=== PATIENT | female | born 2000 | race Caucasian/White ===

== ENCOUNTER 2021-02-08 16:45 | Emergency (ER) | payer OTHER ==
[~2021-02-08] VITALS: Ht 167.7 cm; Wt 68.0 kg
[2021-02-08 16:50] VITALS: BP 117/67
--- NOTE | 2021-02-08 17:12 | ED Syncope ---
General Chief Complaint: Head/Cervical Problems Stated Complaint: SYNCOPE/HIT HEAD Source of Information: Patient Exam Limitations: No Limitations History of Present Illness Date Seen by Provider: Feb 08, 2021 Time Seen by Provider: 16:55 Initial Comments Patient is a 20-year-old female who presents to the emergency department today a fter an episode of syncope that occurred approximately an hour prior to arrival. Patient states that she was doing a stretch that she saw online where you stand against a wall with your hands above your head behind your neck (facing the wall) and arch your back. It is supposed to pop your back and relieve pain. Patient states when she did this maneuver she felt a "pop" in her back and then immediately lost consciousness. She states she is not sure how long she was unconscious. She states that she woke up and called a friend and she brought her here. Patient states she was a little confused when she woke up and had moderate headache and felt a little dizzy. SHe states she fell onto a concrete floor - hit the left side of her chin on the floor. Patient states she has never had a syncopal event in the past. She denies any recent illnesses such as fevers, chills cough or congestion. She denies any recent intake of cold medications or other stimulants, excessive caffeine. She denies feeling palpitations, shortness of breath dizziness or lightheadedness prior to the event. She states she just "blacked out". Patient denies family history of any heart disease or family members that at a young age. She states she last ate at about 1:00. She states she has been drinking normal amounts of fluids. She states she is currently on her menstrual cycle. She states there is no way she could be as she is not sexually active. Patient declines to provide a urine sample for test. She denies any illicit street drugs. She has no chest pain, nausea, shortness of breath. All other review of systems reviewed and negative except as stated. Timing/Prior Episodes: No Prior History Symptoms Prior to Episode: None Precipitating Factors: Standing, Other (doing a "back stretch") Loss of Consciousness: Unsure Current Symptoms: Dizziness (mild), Headache (mild), Injury (chin) Allergies and Home Medications Patient Home Medication List Home Medication List Reviewed: Yes Review of Systems Constitutional: see HPI EENTM: other (pain to chin) Respiratory: no symptoms reported Cardiovascular: no symptoms reported Gastrointestinal: no symptoms reported Genitourinary: no symptoms reported : No Expected Date of Delivery: Feb 08, 2021 Control/STD Prophylaxis: None Musculoskeletal: no symptoms reported Skin: no symptoms reported Psychiatric/Neurological: Headache (mild) All Other Systems Reviewed Negative Unless Noted: Yes Past [id number]-[id number] Hx Patient Social History Tobacco Use?: No Use of E-Cig and/or Vaping dev: No Substance use?: No Alcohol Use?: No Immunizations Up To Date Influenza Vaccine Up-to-Date: No; Not Current First/Initial COVID19 Vaccinat: NONE Second COVID19 Vaccination Caio: NONE Third COVID19 Vaccination Date: NONE COVID19 Vaccine Soakers Supervisor: NONE Physical Exam Vital Signs Vital Signs - First Documented 02/08/21 16:50 Temp 36.8 Pulse 119 Resp 22 B/P (MAP) 117/67 (84) Pulse Ox 100 O2 Delivery Room Air Capillary Refill : Height, Weight, BMI Height: '" Weight: lbs. oz. kg; BMI Method: General Appearance: No Apparent Distress, Other (tearful) HEENT: PERRL/EOMI Neck: Full Range of Motion, Normal Inspection, Non Tender, Supple Cardiovascular: Regular Rate, Rhythm, No Murmur, Normal Peripheral Pulses Respiratory: Lungs Clear, Normal Breath Sounds, No Accessory Muscle Use, No Respiratory Distress Back: No Vertebral Tenderness Extremities: Normal Capillary Refill, Normal Inspection, Normal Range of Motion, No Pedal Edema Neurologic/Psychiatric: Alert, Oriented x3, No Motor/Sensory Deficits, Other (tearful) Cranial Nerves: Normal Hearing, Normal Speech, PERRL Coordination/Gait: Normal Finger to Nose, Normal Gait (no ataxia), Negative Romberg's Sign Motor/Sensory: No Motor Deficit, No Sensory Deficit, No Pronator Drift Skin: Normal Color, Warm/Dry, Other (small contusion to the left side of her chin, no significant abrasion/laceration) Progress/Results/Core Measures Results/Orders Lab Results Laboratory Tests Test 02/08/21 17:15 Range/Units Glucometer 88 70-110 MG/DL My Orders Orders - CLINTON JANG MD Ekg Tracing (02/08/21 16:58) Urine Bedside (02/08/21 16:58) Accucheck Stat ONCE (02/08/21 17:15) Vital Signs/I&O 02/08/21 16:50 Temp 36.8 Pulse 119 Resp 22 B/P (MAP) 117/67 (84) Pulse Ox 100 O2 Delivery Room Air Initial ECG Impression Date: Feb 08, 2021 Initial ECG Impression Time: 17:09 Initial ECG Rate: 90 Initial ECG Rhythm: Normal Sinus Initial ECG Intervals: Normal Initial ECG Impression: Normal Departure Impression Primary Impression: Syncope Qualified Codes: R55 - Syncope and collapse Disposition: 01 HOME, SELF-CARE Condition: Stable Departure-Patient Inst. Decision time for Depature: 17:29 Referrals: [facility],LOCAL PHYSICIAN (PCP) Primary Care Physician Patient Instructions: Upper Back Pain Add. Discharge Instructions: Drink plenty of fluids to stay well-hydrated. You can take [id number] ibuprofen, 3 tablets which is 600 mg, 3 times a day with food for pain. Do this for 3 to 5 days. Heating pads to the sore areas of your upper back. Please follow-up with a primary care physician. Return to the emergency room for any new, concerning or emergent complaints. CLINTON JANG MD Feb 08, 2021 17:12
== END 2021-02-08 17:34 | disposition home or self-care (01) ==
LOC: ER 16:48
DX: S00.83XA Contusion of other part of head, initial encounter (principal); R55 Syncope and collapse; W18.30XA Fall on same level, unspecified, initial encounter
CPT/HCPCS: 82947; 93005